=== PATIENT | male | born 1995 | race Caucasian/White ===

== ENCOUNTER → 2019-01-11 15:47 | Outpatient (CLI) | payer OTHER, SELFPAY ==
--- NOTE | 2019-01-11 15:49 | RAD_ITS ---
STUDY: X-RAY - RIGHT SHOULDER REASON FOR EXAM: Male, 23 years old. Injury 5 days ago. TECHNIQUE: 3 view(s) of the shoulder. COMPARISON: None. FINDINGS: Normal glenohumeral articulation. Normal acromioclavicular joint. Normal acromion. Normal humeral head and visualized proximal humerus. The soft tissue structures are unremarkable. Normal visualized pulmonary apex. RAD/Shoulder min 2 Views IMPRESSION: No acute osseous injury. Electronically Signed: Yvonne Yanez MD at 16:09 EDT Tel , Service support ,
== END ==
PROVIDERS: Family Provider Pediatrics; PCP Pediatrics; Referring Provider Orthopaedic Surgery; Visit Provider Orthopaedic Surgery
DX: T14.8XXA Other injury of unspecified body region, initial encounter (principal); X58.XXXA Exposure to other specified factors, initial encounter; Y93.9 Activity, unspecified; Y92.9 Unspecified place or not applicable; Y99.9 Unspecified external cause status
CPT/HCPCS: 73030

== ENCOUNTER 2019-01-12 10:56 | Day surgery (SDC) | payer OTHER, SELFPAY ==
[2019-01-11 16:04] VITALS: BMI 26.5
[2019-01-12] VITALS (7 sets, daily range): BP systolic 93–120; BP diastolic 43–57; PULSE 57–72; RESP 12–16; TEMP 36.5–36.9; O2SAT 95–99; BMI 27.1
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
[2019-01-12] MEDS: Cefazolin 2 GM in 0.9% Normal Saline 100 ML IV ×2 (13:46→16:15)
--- NOTE | 2019-01-12 15:43 | PCM.DC.ORTHO ---
Discharge Diet: No Restrictions Call your doctor if you observe: Fever of 101 or Higher, Shortness of breath, Chest pain Additional Instructions: Ice to right shoulder 15 minutes on 15 minutes off next 72 hours. Leave bandage on clean dry and intact for 48 hours. Then may remove and begin showering daily with warm water and antibacterial soap. Sling is for comfort only may remove as tolerated. May perform active range of motion however absolutely no weight through right upper extremity besides weight of arm. No pulling pushing or carrying with right upper extremity as this may cause the hardware to fail and require additional surgery and complication. may may take pain medication as prescribed or substitute with Tylenol and [id number] NSAID such as Aleve or ibuprofen. Call if any questions or concerns Allergies/Adverse Reactions: Allergies No Known Allergies Allergy (Verified 01/12/19 11:29) Medications to take at Discharge Oxycodone HCl/Acetaminophen [Percocet 5/325] 1 - 2 tablet PO Q4H PRN PRN 5 Days #40 tablet 01/12/19 The following prescriptions were given: Oxycodone HCl/Acetaminophen [Percocet 5/325] 1 - 2 tablet PO Q4H PRN PRN 5 Days #40 tablet PRN Reason: Pain Transmission Status: Received by [id number] Primary Care Physician: Princess Garcia NP-C [Primary Care Provider] - Test Results: Test results from this visit will be discussed in further detail at your follow-up appointment, if applicable. Please Follow Up With: Ming Savage DO - 2 weeks
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
[2019-01-12] MEDS: Acetaminophen 325 MG Tablet PO (17:07)
[2019-01-12] MEDS: oxyCODONE 5 MG Tablet PO (17:07)
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
== END 2019-01-12 17:29 | disposition home or self-care (01) ==
LOC: SDC 10:57 → AC 10:58
PROVIDERS: Family Provider Nurse Practitioner Family; PCP Nurse Practitioner Family; Referring Provider Orthopaedic Surgery; Visit Provider Orthopaedic Surgery
PROC: (CPT 23515; principal; 2019-01-12 12:50)
DX: S42.021A Displaced fracture of shaft of right clavicle, initial encounter for closed fracture (principal); S42.114A Nondisplaced fracture of body of scapula, right shoulder, initial encounter for closed fracture; V86.56XA Driver of dirt bike or motor/cross bike injured in nontraffic accident, initial encounter; Y93.55 Activity, bike riding; Y92.9 Unspecified place or not applicable; Y99.9 Unspecified external cause status; J45.909 Unspecified asthma, uncomplicated
CPT/HCPCS: 23515; 64415; 73000; 76000; C1713; J7120; J2405

== ENCOUNTER → 2019-02-24 14:49 | Outpatient (CLI) | payer OTHER, SELFPAY ==
[2019-01-27 13:12] VITALS: BMI 27.1
--- NOTE | 2019-02-24 14:50 | RAD_ITS ---
STUDY: X-RAY - RIGHT CLAVICLE REASON FOR EXAM: Postoperative follow-up. TECHNIQUE: 2 view(s) of the clavicle. COMPARISON: Intraoperative images 01/12/2019 and shoulder radiographs 01/11/2019. FINDINGS: There is an orthopedic plate and screws transfixing a clavicular shaft fracture in anatomic alignment and position. Normal acromioclavicular articulation. Normal visualized sternoclavicular articulation. Normal visualized pulmonary apex. There is also a healing fracture of the lateral body of the scapula. RAD/Clavicle IMPRESSION: Anatomic alignment and position of ORIF of clavicle fracture. Electronically Signed: Bryan Kumar MD at 15:16 EDT Tel , Service support ,
== END ==
PROVIDERS: Family Provider Nurse Practitioner Family; PCP Nurse Practitioner Family; Referring Provider Orthopaedic Surgery; Visit Provider Orthopaedic Surgery
DX: Z47.89 Encounter for other orthopedic aftercare (principal)
CPT/HCPCS: 73000

== ENCOUNTER → 2019-03-24 14:58 | Outpatient (CLI) | payer OTHER, SELFPAY ==
[2019-03-24 14:54] VITALS: BMI 27.1
--- NOTE | 2019-03-24 14:59 | RAD_ITS ---
STUDY: X-RAY - RIGHT CLAVICLE REASON FOR EXAM: Surgical follow-up at 8-9 weeks. TECHNIQUE: 2 view(s) of the clavicle. COMPARISON: Radiographs 02/24/2019. FINDINGS: There is an intact orthopedic plate and screws transfixing a mid clavicular shaft fracture in anatomic alignment and position. Normal acromioclavicular articulation. Normal visualized sternoclavicular articulation. Normal visualized pulmonary apex. There is a healing fracture of the lateral body of the scapula. RAD/Clavicle IMPRESSION: Anatomic alignment and position of ORIF of clavicle. Electronically Signed: Bryan Kumar MD at 15:32 EDT Tel , Service support ,
== END ==
PROVIDERS: Family Provider Nurse Practitioner Family; PCP Nurse Practitioner Family; Referring Provider Orthopaedic Surgery; Visit Provider Orthopaedic Surgery
DX: S42.001A Fracture of unspecified part of right clavicle, initial encounter for closed fracture (principal); S42.111A Displaced fracture of body of scapula, right shoulder, initial encounter for closed fracture; X58.XXXA Exposure to other specified factors, initial encounter; Y93.9 Activity, unspecified; Y92.9 Unspecified place or not applicable; Y99.9 Unspecified external cause status
CPT/HCPCS: 73000